=== PATIENT | female | born 1960 | race Caucasian/White ===

== ENCOUNTER → 2017-03-04 | Outpatient (CLI) | payer OTHER | LOC: BMCIMAGING 09:12 | DX: Z12.31 Encounter for screening mammogram for malignant neoplasm of breast (principal) | CPT/HCPCS: G0202 ==

== ENCOUNTER 2018-03-19 17:22 | Inpatient (IN) | payer OTHER ==
--- NOTE | 2018-03-19 17:32 | EDPHY ---
H & P Stated Complaint: exposure to norovirus/n/v/d Time Seen by Provider: 03/19/18 17:31 HPI/ROS: HPI: This is a 57-year-old female who presents with Chief Complaint: Nausea, vomiting, diarrhea Location: GI Quality: Nausea, vomiting, diarrhea Duration: 2 hr Signs and Symptoms: no fever, + nausea, + vomiting, no hematemesis, no blood in stool, no abdominal bloating, + diarrhea, no back pain, no urinary symptoms, no vaginal bleeding/discharge, no indigestion, no chest pain, no shortness of breath Timing: Rapid onset Severity: Moderate to severe Context: Patient has a history of right kidney transplant on Cellcept, immunosuppression, presents with 2 hr history of sudden onset of nausea, vomiting 3 times and diarrhea 10-12 times. She reports that her is currently admitted to the hospital for norovirus and dehydration. She complains since about lower abdominal cramping but denies any abdominal pain. She denies hematemesis/blood in her stool/fever. Denies any recent antibiotic use/foreign travel/drinking contaminated well water. Modifying Factors: None Comment: ROS: see HPI Constitutional: No fever, no chills, no weight loss Eyes: No blurred vision Respiratory: No shortness of breath, no cough Cardiovascular: No chest pain, no palpitations Gastrointestinal: + nausea, + vomiting, + diarrhea, no hematemesis, no blood in stool Genitourinary: No dysuria, no blood in urine Extremities: No myalgias, no edema Neurologic: No weakness, no numbness Skin: No rashes, no petechiae Hematologic: No bruising, no bleeding MEDICAL/SURGICAL/SOCIAL HISTORY: Medical history: Generally healthy. Does not take any regular medications. Surgical history: Right kidney transplant, cholecystectomy Social history: Family history noncontributory. CONSTITUTIONAL: Well-developed, well-nourished nontoxic-appearing adult white female, awake and alert, no obvious distress HEENT: Atraumatic and normocephalic, PERRL, EOMI. Nares patent; no rhinorrhea; no nasal mucosal edema. Tympanic membranes clear. Oropharynx clear, no exudate and moist pink mucosa. Airway patent. No lymphadenopathy. No meningismus. Cardiovascular: Normal S1/S2, regular rate, regular rhythm, without murmur rub or gallop. PULMONARY/CHEST: Symmetrical and nontender. Clear to auscultation bilaterally. Good air movement. No accessory muscle usage. ABDOMEN: Soft, nondistended, nontender, no rebound, no guarding, no peritoneal signs, no masses or organomegaly. No CVAT. EXTREMITIES: 2/2 pulses, strength 5/5, no deformities, no clubbing, no cyanosis or edema. NEUROLOGICAL: no focal neuro deficits. GCS 15. SKIN: Warm and dry, no erythema. no rash. Good capillary refill. Source: Patient, Old records Exam Limitations: No limitations - Personal History Current Tetanus/Diphtheria Vaccine: Yes - Medical/Surgical History Hx Asthma: No Hx Chronic Respiratory Disease: No Hx Diabetes: No Hx Cardiac Disease: No Hx Renal Disease: Yes Hx Cirrhosis: No Hx Alcoholism: No Hx HIV/AIDS: No Hx Splenectomy or Spleen Trauma: No Other PMH: r kidney transplant - Social History Smoking Status: Never smoked Constitutional: Initial Vital Signs Temperature (C) 37 C 03/19/18 17:25 Heart Rate 86 03/19/18 17:25 Respiratory Rate 18 03/19/18 17:25 Blood Pressure 136/89 H 03/19/18 17:25 O2 Sat (%) 98 03/19/18 17:25 O2 Delivery Mode Room Air Allergies/Adverse Reactions: acetaminophen [From Percocet] Allergy (Verified 03/19/18 17:22) Other-Enter Comments morphine Allergy (Verified 03/19/18 17:22) Vomiting oxycodone HCl [From Percocet] Allergy (Verified 03/19/18 17:22) Vomiting ANESTHESIA Allergy (Uncoded 06/23/15 13:03) Vomiting Home Medications: Medication Instructions Recorded Cellcept 03/19/18 Nexium 03/19/18 Medical Decision Making ED Course/Re-evaluation: Labs, urinalysis, IV fluids, IV medications, stool studies ordered Vital signs reviewed and stable upon arrival. Given 1 L normal saline and IV Zofran Labs reviewed; WBC 17 K; increased anion gap immunocompromised patient with likely norovirus infection similar to her partner who is currently admitted. Did not give antibiotics. Stool studies and urinalysis pending. 1820: ED decision to consult for admission. Spoke with Hospitalist, Dr. Holland, who kindly agrees to admit patient for further care. This patient was seen under the supervision of my secondary supervising physician. I evaluated care for this patient independently. Discussed this patient with Dr. Webster who did not see the patient. Differential Diagnosis: Differential diagnosis includes but is not limited to gastroenteritis, gastritis , sepsis, dehydration, acute kidney injury. - Data Points Laboratory Results: Laboratory Results 03/19/18 17:38 18 17:38 18 18 18 17:38 17:38 17:38 WBC 17.29 10^3/uL H 10^3/uL (3.80-9.50) RBC 4.81 10^6/uL 10^6/uL (4.18-5.33) Hgb 14.9 g/dL g/dL (12.6-16.3) Hct 44.4 % % (38.0-47.0) MCV 92.3 fL fL (81.5-99.8) MCH 31.0 pg pg (27.9-34.1) MCHC 33.6 g/dL g/dL (32.4-36.7) RDW 12.9 % % (11.5-15.2) Plt Count 312 10^3/uL 10^3/uL (150-400) MPV 8.8 fL fL (8.7-11.7) Neut % (Auto) Pending Lymph % (Auto) Pending Towns % (Auto) Pending Eos % (Auto) Pending Baso % (Auto) Pending Nucleat RBC Rel Count Pending Absolute Neuts (auto) Pending Absolute Lymphs (auto) Pending Absolute Monos (auto) Pending Absolute Eos (auto) Pending Absolute Basos (auto) Pending Absolute Nucleated RBC Pending Immature Gran % Pending Immature Gran # Pending Platelet Estimate Pending Sodium 141 mEq/L mEq/L (135-145) Potassium 3.8 mEq/L mEq/L (3.5-5.2) Chloride 103 mEq/L mEq/L (97-110) Carbon Dioxide 20 mEq/l L mEq/l (22-31) Anion Gap 18 mEq/L H mEq/L (8-16) BUN 16 mg/dL mg/dL (7-23) Creatinine 1.0 mg/dL mg/dL (0.6-1.0) Estimated GFR 58 Glucose 106 mg/dL H mg/dL (70-100) Calcium 10.0 mg/dL mg/dL (8.5-10.4) Total Bilirubin 1.4 mg/dL mg/dL (0.1-1.4) Conjugated Bilirubin 0.3 mg/dL mg/dL (0.0-0.5) Unconjugated Bilirubin 1.1 mg/dL mg/dL (0.0-1.1) AST 51 IU/L H IU/L (14-46) ALT 33 IU/L IU/L (9-52) Alkaline Phosphatase 77 IU/L IU/L (38-126) Total Protein 8.6 g/dL H g/dL (6.3-8.2) Albumin 5.1 g/dL H g/dL (3.5-5.0) Lipase 208 IU/L IU/L (23-300) Beta HCG, Qual NEGATIVE Medications Given: Discontinued Medications Sodium Chloride (Ns) 1,000 mls @ 0 mls/hr IV EDNOW ONE; Wide Open PRN Reason: Protocol Stop: 03/19/18 17:36 Last Admin: 03/19/18 17:43 Dose: 1,000 mls Ondansetron HCl (Zofran) 4 mg IVP EDNOW ONE Stop: 03/19/18 17:36 Last Admin: 03/19/18 17:43 Dose: 4 mg Departure - Departure Disposition: [facility] Acute Clinical Impression: Viral gastroenteritis, Immunocompromised patient
[2018-03-19] MEDS ORDERED: ONDANSETRON 4 MG/2 ML VIAL IVP ONE ×2 (17:35→18:42)
[2018-03-19] MEDS ORDERED: NS 1,000 ML IV ONE ×2 (17:35→18:13)
[2018-03-19 17:47] LABS: PLATELET COUNT 312 10^3/uL (150-400)
[2018-03-19] MEDS ORDERED: ACETAMINOPHEN 650 MG SUPP PR PRN (20:08)
--- NOTE | 2018-03-19 20:40 | GHP ---
[f rep st] HISTORY AND PHYSICAL DATE OF ADMISSION: 03/19/2018 CHIEF COMPLAINT: Nausea, vomiting, and diarrhea. HISTORY OF PRESENT ILLNESS: The patient is a 57-year-old female on chronic immunosuppression due to a history of kidney transplant. Her is currently admitted to the hospital with norovirus and luke s now been hospitalized for 2 days. The patient felt well until 2 hours prior to admission when she had acute sudden onset of profuse nausea, vomiting, and diarrhea. In the 2 hours prior to her coming to the emergency room she had 12 episodes of diarrhea and vomited 3 times. She has no abdominal dirk n except for abdominal cramping associated with the diarrhea. PAST MEDICAL HISTORY: 1. 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 2. Chronic vertigo. 3. Hypertension taking losartan 25 mg p.o. daily. PAST SURGICAL HISTORY: Cholecystectomy. MEDICATIONS: Please see computer record for full detailed list. ALLERGIES: Oxycodone and morphine. SOCIAL HISTORY: No smoking. Occasional alcohol. She is retired. She lives with her who is al so currently hospitalized for norovirus. REVIEW OF SYSTEMS: Complete review of systems obtained. Review of systems is negative regarding con stitutional, HEENT, GI, pulmonary, cardiovascular, , Hematology, skin, musculoskeletal, endocrine, and psychiatric except for positives and negatives as in HPI. FAMILY HISTORY: Reviewed, noncontributory to the presenting complaint. PHYSICAL EXAMINATION: GENERAL: Well-developed, well-nourished female in no acute distress. VITAL S IGNS: Temperature 37, pulse 86, blood pressure 136/89, saturating 98% on room air. EYES: Normal co njunctivae. Pupils are equal and reactive to light. ENT: Normal ears and nose. Hearing intact. N ormal teeth. Oropharynx moist. NECK: Trachea midline. No thyromegaly. CHEST: Normal respiratory effort. LUNGS: Clear to auscultation bilaterally. CARDIOVASCULAR: Regular rate, rhythm. No murm ur. No extremity edema. ABDOMEN: Soft, nontender. No hepatosplenomegaly. SKIN: Warm, dry, intac t. No rash. MUSCULOSKELETAL: No cyanosis or clubbing. Strength 5/5 upper and lower extremities. NEUROLOGIC: Cranial nerves intact. Normal sensation to light touch. PSYCHIATRIC ASSESSMENT: Alert and oriented x3. Normal affect. Normal judgment. Normal memory. LABORATORY DATA: White count 17.29, hematocrit 44.4, platelets 312. Sodium 141, potassium 3.8, chlo ride 103, bicarbonate 20, BUN 16, creatinine 1.0, glucose 106. LFTs are negative. Lactate 0.7. This case was discussed with Augustina Main, emergency room provider regarding hospital course. Old cris rds are reviewed. She has never previously been hospitalized here. She previously underwent a kidne y biopsy at our facility. Otherwise her past charting here is relatively unremarkable. Her previous nephrology workups have not been at this facility. ASSESSMENT AND PLAN: 1. Nausea, vomiting, and diarrhea. I suspect this is viral. It is probably norovirus, given her pa rtner is currently afflicted with the same virus and hers is confirmed. We will send GI PCR panel an d continue to treat supportively. 2. Kidney transplant on chronic immunosuppression. We will continue these medications once they are reconciled. 3. Hypertension. Continue losartan. 4. Chronic vertigo. Sounds like this is a daily issue for her. We will consult Physical Therapy. CODE STATUS: Full. ADMISSION STATUS: Will admit to observation and reevaluate tomorrow regarding ongoing need for hospi talization. DVT PROPHYLAXIS: She is moderate risk. We will place on subcutaneous Lovenox. /[id number]/MODL
[2018-03-19] MEDS: PROMETHAZINE HCL 25 MG/ML INJ IVP PRN (20:58)
[2018-03-19] MEDS: HYDROmorphone HCL/NS 0.5 MG/ML SYR IVP PRN (20:58)
[2018-03-19] MEDS: MYCOPHENOLATE MOFETIL 250 MG CAP PO SCH (21:26)
[2018-03-19] MEDS: NS 1,000 ML IV SCH (21:26)
[2018-03-19] MEDS: LOSARTAN POTASSIUM 25 MG TAB PO SCH (21:26)
[2018-03-19] MEDS: CALCIUM CARB W/VIT D 500 MG TAB PO SCH (21:29)
[2018-03-19] MEDS: GLUCOSAMINE/CHONDROITIN CAP PO SCH (21:29)
[2018-03-20] MEDS: ONDANSETRON 4 MG/2 ML VIAL IVP PRN ×3 (01:06→14:05)
[2018-03-20] MEDS: HYDROmorphone HCL/NS 0.5 MG/ML SYR IVP PRN ×3 (01:06→17:44)
[2018-03-20] MEDS: PROMETHAZINE HCL 25 MG/ML INJ IVP PRN ×2 (04:41→17:44)
[2018-03-20 05:06] LABS: PLATELET COUNT 290 10^3/uL (150-400)
[2018-03-20] MEDS: ENOXAPARIN 40 MG/0.4 ML SYR SC SCH (09:42)
[2018-03-20] MEDS: MYCOPHENOLATE MOFETIL 250 MG CAP PO SCH ×2 (09:43→21:12)
[2018-03-20] MEDS: NS 1,000 ML IV SCH ×2 (09:57→21:25)
[2018-03-20] MEDS: ACETAMINOPHEN 325 MG TAB PO PRN ×2 (09:57→15:33)
[2018-03-20] MEDS: GLUCOSAMINE/CHONDROITIN CAP PO SCH ×2 (10:44→21:13)
[2018-03-20] MEDS: CALCIUM CARB W/VIT D 500 MG TAB PO SCH ×3 (10:44→21:17)
[2018-03-20] MEDS: PANTOPRAZOLE SODIUM 40 MG TAB PO SCH (10:45)
--- NOTE | 2018-03-20 10:57 | HOSPPROG ---
Hospitalist Progress Note Assessment/Plan: #Gastroenteritis -Norovirus -const supportive care #Dehydration -Cont IVF -tolerating some clear, cont CLD #N/V -Antiemetics #Abd pain -per above -cont PPI #Hx of IgA Nephropathy, s/p Kidney Transplant, Immunosuppression -cont home meds -serial bmp Dispo: Keep overnight, inpatient Lovenox for DVT proph Subjective: feels better, limited po. tolerating CLD. + norovirus Objective: Vital Signs Temp Pulse Resp BP Pulse Ox 37.5 C 60 14 113/62 93 03/20/18 07:18 03/20/18 07:18 03/20/18 07:18 03/20/18 07:18 03/20/18 07:18 Microbiology 03/19/18 20:50 Gastrointestinal Tract Panel (PCR) - Final Stool Norovirus Gi/Gii Laboratory Results 03/20/18 04:32 03/20/18 04:32 03/19/18 03/20/18 03/21/18 05:59 05:59 05:59 Intake Total 2000 Output Total 300 Balance 1700 - Physical Exam Constitutional: no apparent distress, appears nourished Eyes: PERRL Ears, Nose, Mouth, Throat: dry mucous membranes Cardiovascular: regular rate and rhythym, No edema Respiratory: no respiratory distress, no rales or rhonchi, clear to auscultation Gastrointestinal: normoactive bowel sounds, soft, non-tender abdomen Skin: warm Neurologic: AAOx3 Psychiatric: interacting appropriately, not anxious, not encephalopathic, thought process linear Lymph, Heme, Immunologic: No petechiae ICD10 Worksheet Patient Problems: Problems Problem Status Onset Immunocompromised patient Acute Viral gastroenteritis Acute
--- NOTE | 2018-03-20 11:47 | ASMTCMCOM ---
CM Note CM Note Notes: Spoke w/RN, pt and both hospitalized with Norovirus. Anticipate will dc home independent when medically stable. CM available for any changes. DC Plan: Independent Date Signed: 03/20/2018 11:47 AM Electronically Signed By:Brittany Serrano RN
--- NOTE | 2018-03-20 15:10 | PDMN ---
Medical Necessity Medical necessity: change to IP; los>2mn for gastroenteritis/ norovirus, N/V, and abd pain; requires continued supportive care, IVF, PPI, and antiemetics; comorbid IgA nephropathy s/p renal transplant, immunosuppression; per order and progress note 03/20/18
[2018-03-20] MEDS: LOSARTAN POTASSIUM 25 MG TAB PO SCH (21:12)
[2018-03-21] MEDS: PROMETHAZINE HCL 25 MG/ML INJ IVP PRN (00:27)
[2018-03-21 07:27] VITALS: BP 120/73
[2018-03-21] MEDS: MYCOPHENOLATE MOFETIL 250 MG CAP PO SCH (08:31)
[2018-03-21] MEDS: ENOXAPARIN 40 MG/0.4 ML SYR SC SCH (08:31)
[2018-03-21] MEDS: GLUCOSAMINE/CHONDROITIN CAP PO SCH (08:32)
[2018-03-21] MEDS: PANTOPRAZOLE SODIUM 40 MG TAB PO SCH (08:32)
[2018-03-21] MEDS: CALCIUM CARB W/VIT D 500 MG TAB PO SCH (08:32)
[2018-03-21] MEDS ORDERED: ONDANSETRON DISINTEGRATING 4 MG TAB PO PRN (08:42)
[2018-03-21] MEDS: ACETAMINOPHEN 325 MG TAB PO PRN (13:37)
--- NOTE | 2018-03-22 14:09 | GDS ---
[f rep st] DISCHARGE SUMMARY DISCHARGE DIAGNOSES: 1. Gastroenteritis with norovirus. 2. History of IgA nephropathy with kidney transplant. HISTORY: This is a 57-year-old female presenting with significant diarrhea and nausea, and her live- in partner was also diagnosed with norovirus. HOSPITAL COURSE: Patient was admitted and given IV fluids. Her stool was positive for norovirus. S he improved over 48 hours and by the time of discharge, she was tolerating meals and able to keep pil ls down as well as water down and eat some food. Her stools had formed up a little bit more. She wi ll be discharged home. DISPOSITION: Home. DISCHARGE MEDICATIONS: She is to resume all her medicines. Also prescription for Zofran was given. FOLLOWUP INSTRUCTIONS: She is instructed to follow up with primary care doctor as needed. /[id number]/MODL
== END 2018-03-21 16:30 | disposition home or self-care (01) | DRG 392 ==
LOC: OBSVTOIN 18:36 → INTOOBSV 18:36 → F3E 20:07
PROVIDERS: ADMIT Internal Medicine; ATTEND Internal Medicine
DX: A08.11 Acute gastroenteropathy due to Norwalk agent (principal); N02.8 Recurrent and persistent hematuria with other morphologic changes; Z94.0 Kidney transplant status; I10 Essential (primary) hypertension; R42 Dizziness and giddiness
CPT/HCPCS: 96374; G0378; J1170; J1650; J2405; J2550

== ENCOUNTER → 2018-04-08 | Outpatient (CLI) | payer OTHER | LOC: BMCIMAGING 14:24 | PROVIDERS: ATTEND Internal Medicine | DX: Z12.31 Encounter for screening mammogram for malignant neoplasm of breast (principal) ==

== ENCOUNTER → 2019-01-28 | Outpatient (CLI) | payer OTHER | LOC: BMCIMAGING 09:57 | PROVIDERS: ATTEND Internal Medicine | DX: N02.8 Recurrent and persistent hematuria with other morphologic changes (principal); Z78.0 Asymptomatic menopausal state; M85.80 Other specified disorders of bone density and structure, unspecified site ==

== ENCOUNTER → 2019-02-11 | Outpatient (CLI) | payer OTHER | LOC: BMCIMAGING 10:56 | PROVIDERS: ATTEND Physician Assistant Medical | DX: S89.91XA Unspecified injury of right lower leg, initial encounter (principal) ==